=== PATIENT | female | born 2005 | race Caucasian/White ===

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

== ENCOUNTER 2023-02-25 11:33 | Emergency (ER) | payer OTHER ==
[~2023-02-25] VITALS: Ht 160 cm; Wt 54.9 kg
[2023-02-25 11:47] VITALS: BP 123/75; PULSE 85; RESP 16; TEMP 97.9; O2SAT 100
[2023-02-25] MEDS ORDERED: FLEXERIL PO STA (11:48)
[2023-02-25] MEDS ORDERED: FLEXERIL ONE (11:56)
[2023-02-25 12:00] LABS: BILIRUBIN,URINE NEGATIVE (NEGATIVE); LEUKOCYTE ESTERASE ,URINE 1+ (NEGATIVE); NITRATE,URINE NEGATIVE (NEGATIVE); PH,URINE 7.5 (4.5-8.0)
[2023-02-25 12:06] LABS: APPEARANCE,URINE CLOUDY; UA COLOR YELLOW
[2023-02-25 12:15] LABS: HYALINE CASTS, URINE FEW (NONE SEEN)
[2023-02-25 12:24] LABS: +ADD MANUAL DIFF(NO CHRG) NO; BASOPHIL % 0.2 % (0.0-0.2); EOSINOPHIL # 0.1 10^3/uL (0.0-0.2); EOSINOPHIL % 0.7 % (0.0-5.0); HEMATOCRIT(ML) 36.8 % (36.0-46.0); HEMOGLOBIN 12.4 g/dL (12.4-14.8); LYMPHOCYTES # 2.08 10^3/uL1 (1.2-5.2); LYMPHOCYTES % 24.1 % (24.0-44.0); MEAN CORP HGB 30.1 pg (26-34); MEAN CORP HGB CONCENTRATION 33.7 g/dL (33-36.5); MEAN CORP VOLUME 89.3 fL (78-100); MONOCYTES # 0.6 10^3/uL (0.0-0.4); NEUTROPHIL # 5.8 10^3/uL (1.8-8.0); NEUTROPHILS % 67.3 % (41.0-85.0); PLATELET COUNT 226 10^3/uL (150-400); RED BLOOD CELL 4.12 10^6/uL (4.00-5.20); RED CELL DISTRIBUTION WIDTH 13.5 % (11.5-14.5); WHITE BLOOD CELL 8.6 10^3/uL (4.5-12.5)
[2023-02-25 13:00] VITALS: BP 103/65; PULSE 74; RESP 16; O2SAT 98
[2023-02-25 13:07] LABS: ALBUMIN(ML) 2.7 g/dL (3.4-5.0); ALBUMIN/GLOBULIN RATIO 0.87; ANION GAP 12.6; BUN/CREATININE RATIO 11.94 (10.0-20.0); CARBON DIOXIDE 24.8 mmol/L (20.0-32); CREATININE SERUM 0.67 mg/dL (0.59-1.40); EST GFR, NON-AA 113.4 (>/=60); POTASSIUM 3.4 mmol/L (3.6-5.2)
[2023-02-25 13:50] VITALS: BP 115/66; PULSE 76; RESP 16; TEMP 98.2; O2SAT 99
== END 2023-02-25 13:54 | disposition home or self-care (01) ==
LOC: ER 11:33
DX: O21.9 Vomiting of pregnancy, unspecified (principal); Z87.442 Personal history of urinary calculi; Z90.89 Acquired absence of other organs; Z3A.20 20 weeks gestation of pregnancy
CPT/HCPCS: 36415; 76805; 80053; 81001; 81025; 84702; 85025; 87077; 87086; 87186; 99284